=== PATIENT | female | born 1945 | race Caucasian/White ===

== ENCOUNTER 2021-12-07 14:26 | Emergency (ER) | payer OTHER, MEDICAID ==
[~2021-12-07] VITALS: Ht 154.9 cm; Wt 49.9 kg
[2021-12-07 14:26] VITALS: BP_SYST 118
--- NOTE | 2021-12-07 14:35 | NUR ---
BROUGHT INTO TRIAGE TENT AND TRIAGED. AWAITING ER BED
--- NOTE | 2021-12-07 15:06 | NUR ---
BROUGHT IN FROM TENT TO ROOM #4
[2021-12-07] MEDS ORDERED: ONDANSETRON HCL 4 MG/2 ML VIAL IVP ONE (15:30)
[2021-12-07] MEDS ORDERED: NACL 0.9% 1,000 ML IV ONE (15:30)
--- NOTE | 2021-12-07 16:10 | NUR ---
RECEIVED PT FROM [facility]. ASSUMED CARE. PT BIBS AND HAS C/O N/V, GASTRITIS. PT ON R/A. NORMAL S1S2. ABDOMEN SOFT, TENDER, NONDISTENDED. SKIN INTACT, NO EDEMA, DISTAL PULSES NORMAL. SIDERAILS UP X2.
[2021-12-07 16:37] LABS: BASOPHILS % (AUTO) 0.3 % (0.0-2.0); EOSINOPHILS # (AUTO) 0.1 K/uL (0.0-0.4); EOSINOPHILS % (AUTO) 0.5 % (0.0-4.0); HEMATOCRIT 27.3 % (36-48); LYMPHOCYTES # (AUTO) 1.2 K/uL (1.0-5.5); LYMPHOCYTES % (AUTO) 11.4 % (20.5-51.5); MEAN CORPUSCULAR VOLUME 90 fL (79.0-98.0); MONOCYTES # (AUTO) 0.5 K/uL (0.0-1.0); MONOCYTES % (AUTO) 5.1 % (1.7-9.3); NEUTROPHILS # (AUTO) 8.9 K/uL (1.8-7.7); NEUTROPHILS % (AUTO) 82.7 % (40.0-70.0); PLATELET COUNT (AUTO) 421 K/uL (130-430); RED BLOOD CELL COUNT(AUTO) 3.03 MIL/uL (4.2-6.2); RED CELL DISTRIBUTION WIDTH 12.7 % (9.0-15.0); WHITE BLOOD COUNT (AUTO) 10.8 K/uL (4.8-10.8)
[2021-12-07 17:04] LABS: ANION GAP 10 (5-15); CALCIUM 9.5 mg/dL (8.4-11.0); CHLORIDE 97 mmol/L (98-107); GLUCOSE 139 mg/dL (70-99); POTASSIUM 4.9 mmol/L (3.5-5.1); UREA NITROGEN, BLOOD 35 mg/dL (8-21)
[2021-12-07 17:10] LABS: ALANINE AMINOTRANSFERASE 8 U/L (12-78); ALBUMIN 2.5 g/dL (3.4-4.8); ASPARTATE AMINOTRANSFERASE 14 U/L (10-37); LIPASE 110 U/L (73-393); TOTAL BILIRUBIN 0.5 mg/dL (0.0-1.0)
[2021-12-07] MEDS ORDERED: FERR-69 PO ×3 (17:28→18:12)
[2021-12-07] MEDS ORDERED: SUCR1TAB2 PO ×3 (17:28→18:12)
[2021-12-07] MEDS ORDERED: ONDA-8 TL ×3 (17:28→18:12)
--- NOTE | 2021-12-07 17:42 | NUR ---
IV CATH 20 G PLACED TO LAC. SCHEDULED MEDS GIVEN.
[2021-12-07] MEDS ORDERED: ONDANSETRON HCL 4 MG/2 ML VIAL ONE (17:44)
[2021-12-07 18:34] VITALS: BP_SYST 115
--- NOTE | 2021-12-07 18:36 | NUR ---
Patient given written and verbal discharge instructions and verbalizes understanding. ER MD discussed with patient the results and treatment provided. Patient in stable condition. ID arm band removed. IV catheter removed intact and dressing applied, no active bleeding. Rx of ZOFRAN/KARAFATE given. Patient educated on pain management and to follow up with PMD. Pain Scale 0/10. Opportunity for questions provided and answered. Medication side effect fact sheet provided.
== END 2021-12-07 18:34 | disposition home or self-care (01) ==
LOC: SED 14:26
DX: D64.9 Anemia, unspecified (principal); N28.9 Disorder of kidney and ureter, unspecified; K29.70 Gastritis, unspecified, without bleeding; R53.1 Weakness; R11.0 Nausea; Z88.5 Allergy status to narcotic agent; Z79.899 Other long term (current) drug therapy
CPT/HCPCS: 99283; 96374; 96361; 80053; 83690; 85025; 36415; J2405; J7030